=== PATIENT | female | born 1960 | race Hispanic/Latino ===

== ENCOUNTER 2018-05-10 21:27 | Emergency (ER) | payer BC ==
[~2018-05-10] VITALS: Ht 162.6 cm; Wt 61.7 kg
[~2018-05-10 21:27] MED LIST: GABAPENTIN300 MG PO; HYDROCHLOROTH12.5 M1 PO; IMITREX50 MG PO; LEXAPRO20 MG PO; LISINOPRIL2.5 MG PO; LOSARTAN POTAS100 MG PO; MEDROL4 MG/DOSE-; METOPROLOL SUCC25 MG PO; MOTRIN200 MG PO; NITROGLYCERIN0.4 MG SL; NITROSTAT0.4 MG; PAROXETINE HCL20 MG PO; PREDNISONE10 M1; PROPRANOLOL HCL10 MG PO; SOMA350 MG PO; TOPAMAX100 MG PO; lortab PO
[2018-05-10] MEDS ORDERED: CLONIDINE HCL 0.2 MG TAB PO ONE (22:00)
[2018-05-10 22:32] VITALS: BP 189/98
== END 2018-05-10 22:34 | disposition home or self-care (01) ==
LOC: FSED 21:27
DX: H60.92 Unspecified otitis externa, left ear (principal); I10 Essential (primary) hypertension
CPT/HCPCS: 99283

== ENCOUNTER 2019-11-12 16:51 | Emergency (ER) | payer BC ==
[~2019-11-12] VITALS: Ht 170.2 cm; Wt 65.8 kg
[2019-11-12] MEDS ORDERED: HYDRALAZINE HCL 20 MG/ML VIAL IV STA (17:31)
--- NOTE | 2019-11-12 17:37 | Emergency Department Note ---
History of Present Illnes History of Present Illness Chief Complaint: Hypertension History of Present Illness This is a 59 year old female presents to the ED for elevated SBP for 213 mmHg starting today. Reports R sided PAZ with R retrorbital pain with blurriness of both eyes. Historian: Patient Arrival Mode: Car Past Medical/Family History Physician Review I have reviewed the patient's past medical and family history. Any updates have been documented here. Past Medical History Recent Fever: No Clinical Suspicion of Infectio: No New/Unexplained Change in Ment: No Past Medical History: Hypertension Other Medical History: CIDP (GUILLAIN-BARRE) Past Surgical History: Appendectomy Other Surgery: C SEC X2 CERVICAL SURGERY RIGHT ARM Social History Smoking Cessation: Never Smoker Alcohol Use: None Any Illegal Drug Use: No Other Last Tetanus: OOD Review of Systems Review of Systems Constitutional: Reports no symptoms EENTM: Reports no symptoms Cardiovascular: Reports no symptoms Respiratory: Reports no symptoms Gastrointestinal: Reports no symptoms Genitourinary: Reports no symptoms Musculoskeletal: Reports no symptoms Integumentary: Reports no symptoms Neurological: Reports headache Psychological: Reports no symptoms Endocrine: Reports no symptoms Hematological/Lymphatic: Reports no symptoms Physical Exam Related Data Allergies: Coded Allergies: morphine (Verified Allergy, Mild, 03/13/13) propoxyphene (Verified Allergy, Mild, 03/13/13) butorphanol (Verified Allergy, Unknown, 04/20/16) ciprofloxacin (Verified Allergy, Unknown, 04/20/16) ciprofloxacin HCl (Verified Allergy, Unknown, 04/20/16) ondansetron (Verified Allergy, Unknown, 11/10/13) sumatriptan (Verified Allergy, Unknown, 04/20/16) sumatriptan succinate (Verified Allergy, Unknown, 04/20/16) hydromorphone HCl (Verified Adverse Reaction, Intermediate, Itching, 03/14/13) Patient is complaining of "itching all over." Also noted red areas on skin Triage Vital Signs Vital Signs Date Time Temp Pulse Resp B/P (MAP) Pulse Ox O2 Delivery O2 Flow Rate FiO2 11/12/19 17:24 98.1 82 16 192/108 100 Vital signs reviewed: Yes Physical Exam CONSTITUTIONAL Constitutional: Present well-developed, Present well-nourished HENT HENT: Present normocephalic, Present atraumatic, Present oropharynx clear/moist, Present nose normal HENT L/R: Present left ext ear normal, Present right ext ear normal EYES Eyes: Reports PERRL, Reports conjunctivae normal NECK Neck: Present ROM normal PULMONARY Pulmonary: Present effort normal, Present breath sounds normal CARDIOVASCULAR Cardiovascular: Present regular rhythm, Present heart sounds normal, Present capillary refill normal, Present normal rate GASTROINTESTINAL Abdominal: Present soft, Present nontender, Present bowel sounds normal GENITOURINARY Genitourinary: Present exam deferred SKIN Skin: Present warm, Present dry MUSCULOSKELETAL Musculoskeletal: Present ROM normal NEUROLOGICAL Neurological: Present alert, Present oriented x 3, Present no gross motor or sensory deficits PSYCHOLOGICAL Psychological: Present mood/affect normal, Present judgement normal Procedures 12 Lead ECG Interpretation ECG Interpretation : ECG: ECG 1 Meat Lugger: Interpreted by ED physician Date: Nov 12, 2019 Time: 18:47 Prior ECG tracings: reviewed Rhythm: sinus rhythm Rate: normal BPM: 71 QRS axis: normal ST segments normal: Yes T waves normal: Yes T waves flattening: all, V1-V6 Clinical Impression: normal ECG Assessment & Plan Assessment & Plan Final Impression: (1) Hypertensive urgency (2) Dizziness Last Vital Signs Date Time Temp Pulse Resp B/P (MAP) Pulse Ox O2 Delivery O2 Flow Rate FiO2 11/12/19 17:24 98.1 82 16 192/108 100 Home Meds Reported Medications Paroxetine Hcl (PAROXETINE HCL) 20 Mg Tablet, 50 MG PO DAILY, #30 TAB 04/22/16 Losartan Potassium (LOSARTAN POTASSIUM) 100 Mg Tablet, 50 MG PO BID, TAB 04/20/16 Propranolol Hcl (PROPRANOLOL HCL) 10 Mg Tablet, 60 MG PO HS, TAB 04/20/16 Nitroglycerin (NITROGLYCERIN) 0.4 Mg Tab.subl, 0.4 MG SL Q5MIN PRN for CHEST PAIN, TAB 10/29/13 Ibuprofen (MOTRIN) 200 Mg Tab, 400 MG PO Q6 PRN for PAIN, TAB 10/29/13 Escitalopram Oxalate (LEXAPRO) 20 Mg Tablet, 20 MG PO DAILY 03/13/13 Gabapentin (GABAPENTIN) 300 Mg Capsule, 300 MG PO TID 03/13/13 MEGHAN RIDLEY DO Nov 12, 2019 17:37
--- OUTSIDE RECORDS SUMMARY | 2019-11-12 17:46 | XMS REPORT | Continuity of Care Document ---
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 Name Role Phone Impedance Cardiology Systems Information [employer] Unavailable Un available Problems Problem Status Onset Date Classification Date Reported Comments Source Hyperthyroidism Active 03/19/2013 [facility] Hypertension Active 03/19/2013 [facility] Anxiety Disorder NOS Active 03/19/2013 [facility] Acute Bronchitis Active 03/19/2013 [facility] Chest Pain Active 03/19/2013 [facility] Numbness (Hypesthesia) Active 03/19/2013 [facility] Tingling (Paresthesia) Active 03/19/2013 [facility] Upper Back Pain (Between Shoulder Blades) Active 03/19/2013 [facility] Medications Medication Details Route Status Patient Instructions Ordering Provider Order Date Source Escitalopram Oxalate 20 MG Oral Tablet ; End Date: 05/17/2013 (Active) Active 05/18/2013 [facility] PredniSONE 10 MG Oral Tablet ; Start Date: 03/07/2013; End Date: (Active) Active 03/07/2013 [facility] Carisoprodol 350 MG Oral Tablet ; Start Date: 03/07/2013 (Active) Active 03/07/2013 [facility] Nitrostat 0.4 MG Sublingual Tablet Sublingual ; Start Date: 03/07/2013; End Date: (Active) Active 03/07/2013 [facility] Metoprolol Succinate ER 25 MG Oral Table t Extended Release 24 Hour ; Start Date: 12/18/2012; End Date: 02/1899 (Active) Active 12/18/2012 [facility] Hydrochlorothiazide 12.5 MG Oral Capsule ; Start Date: 12/18/2012; End Date: (Active) Active 12/18/2012 [facility] Gabapentin 300 MG Oral Capsule (Active) Active [facility] Escitalopram Oxalate 20 MG Oral Tablet (Active) Active [facility] Losartan Potassium 100 MG Oral Tablet (Active) Active [facility] Promethazine HCl 25 MG Oral Tablet (Active) Active [facility] SUMAtriptan Succinate 25 MG Oral Tablet (Active) Active [facility] Ibuprofen 200 MG Oral Capsule (Active) Active [facility] Aleve 220 MG Oral Capsule (Ac tive) Active [facility] Hydrocodone-Acetaminophen TABS (Active) Active [facility] Allergies, Adverse Reactions, Alerts Substance Category Reaction Severity Reaction type Status Date Reported Comments Source Morphine Derivatives drug marvin rgy drug aller gy Active [facility] Darvon CAPS drug allergy drug allergy Active [facility] Cipro TABS drug allergy drug allergy Active [facility] Imitrex TABS drug allergy drug allergy Active [facility] Darvocet-N 50 TABS drug allergy drug allergy Active [facility] Immunizations No Data Provided for This Section Results No Data Provided for This Section Pathology Reports No Data Provided for This Section Diagnostic Reports No Data Provided for This Section Consultation Notes No Data Provided for This Section Discharge Summaries No Data Provided for This Section History and Physicals No Data Provided for This Section Vital Signs No Data Provided for This Section Encounters Location Location Details Encounter Type Encounter Number Reason For Visit Attending Provider ADM Date DC Date Status Source AUDIT [id number] 12/18/2012 12/18/2012 [facility] AUDIT [id number] 03/09/2013 03/09/2013 [facility] CHADDP Provi valerie: HAYDER CRUM, Status: Pen, Time: 9:00 AM [id number] 03/14/19 14 03/09/2013 [facility] AUDIT [id number] 03/14/2013 03/14/2013 [facility] AUDIT [id number] 03/19/2013 03/19/2013 [facility] [id number], Provi valerie: NATALIE BAL, Status: Pen, Time: 3:00 PM [id number] 03/28/19 14 03/19/2013 [facility] Procedures No Data Provided for This Section Assessment and Plan No Data Provided for This Section Plan of Care Plan of Care Date Source XRAY Spine cervical 2 or 3 view [id number] 03/07/2013 [facility] Spine thoracic AP Lat swimmer [id number] 03/07/2013 RoutineMedication Use 03/07/2013 Routine 03/19/2013 [facility] XRAY Spine cervical 2 or 3 view [id number] 03/07/2013 RoutineXRAY Spine thoracic AP Lat swimmer [id number] 03/07/2013 RoutineMedication Use 03/07/2013 RoutineCardiology Referral 03/07/2013 Routine 03/14/2013 [facility] XRAY Spine cervical 2 or 3 view [id number] 03/07/2013 RoutineXRAY Spine thoracic AP Lat swimmer [id number] 03/07/2013 RoutineMedication Use 03/07/2013 RoutineCardiology Referral 03/07/2013 Routine 03/09/2013 [facility] Social History Social History Date Source Marital History - Currently (Active) Never A Smoker (Active) No History of Never Drank Alcohol (Denied) Never Used Drugs (Active) Being A Social Drinker (Active) 03/19/2013 [facility] Family History Value Date S ource Maternal history of Hypertension (V17.49 ); (Active) Maternal history of Diabetes Mellitus (V18.0); (Active) Maternal history of Cancer (Active) Maternal history of Stroke Complications (Active) Maternal uncle's history of Parkinson Disease (Active) 03/19/2013 [facility] Maternal history of Hypertension (V17.49 ); (Active) Maternal history of Diabetes Mellitus (V18.0); (Active) Maternal history of Cancer (Active) Maternal history of Stroke Complications (Active) Maternal uncle's history of Parkinson Disease (Active) 03/14/2013 [facility] Maternal history of Hypertension (V17.49 ); (Active) Maternal history of Diabetes Mellitus (V18.0); (Active) Maternal history of Cancer (Active) Maternal history of Stroke Complications (Active) Maternal uncle's history of Parkinson Disease (Active) 03/09/2013 [facility] Maternal history of Hypertension (V17.49 ); (Active) Maternal history of Diabetes Mellitus (V18.0); (Active) Maternal history of Cancer (Active) Maternal history of Stroke Complications (Active) 12/18/2012 [facility] Advance Directives Order Name Results Value Date Source Advance Directives Advance Dir ectives No Advance Directives available. 03/19/2013 [facility] Advance Directives Advance Dir ectives No Advance Directives available. 03/14/2013 [facility] Advance Directives Advance Dir ectives No Advance Directives available. 03/09/2013 [facility] Advance Directives Advance Dir ectives No Advance Directives available. 12/18/2012 [facility] Functional Status No Data Provided for This Section
[2019-11-12 18:09] LABS: BASOPHILS % 0.7 % (0.0-1.0); EOSINOPHILS # (AUTO) 0.2 (0.0-0.4); EOSINOPHILS % 4.1 % (0.0-6.0); HEMATOCRIT 38.1 % (34.2-44.1); LYMPHOCYTES # (AUTO) 1.3 (1.0-3.2); LYMPHOCYTES % 28.6 % (18.0-39.1); MEAN CORPUSCULAR HGB CONC 34.1 g/dL (31-35); MONOCYTES # (AUTO) 0.4 (0.2-0.8); MONOCYTES % 7.6 % (4.4-11.3); NEUTROPHILS # (AUTO) 2.7 (2.1-6.9); NEUTROPHILS % 58.8 % (38.7-80.0); PLATELET COUNT 235 x10e3/uL (140-360); RED BLOOD COUNT 4.33 x10e6/uL (3.6-5.1); RED CELL DISTRIBUTION WIDTH 12.8 % (11.7-14.4)
[2019-11-12 18:31] LABS: ALANINE AMINOTRANSFERASE 13 IU/L (0-55); ALBUMIN 4.5 g/dL (3.5-5.0); ALBUMIN/GLOBULIN RATIO 1.5 (0.8-2.0); ALKALINE PHOSPHATASE 75 IU/L (40-150); ANION GAP 13.9 mmol/L (8-16); BLOOD UREA NITROGEN 13 mg/dL (7-26); BUN/CREATININE RATIO 18 (6-25); CALCIUM 9.1 mg/dL (8.4-10.2); CARBON DIOXIDE 26 mmol/L (22-29); CHLORIDE 104 mmol/L (98-107); CREATINE KINASE 84 IU/L (29-168); CREATININE, SERUM 0.72 mg/dL (0.57-1.11); EST GLOMERULAR FILTRATION RATE > 60 ML/MIN (60-); GLUCOSE 87 mg/dL (74-118); POTASSIUM 3.9 mmol/L (3.5-5.1); SODIUM 140 mmol/L (136-145)
--- NOTE | 2019-11-12 18:32 | Diagnostic Imaging Report ---
CT BRAIN WO HISTORY: Dizziness COMPARISON: Report from head CT dated 11/10/2013 TECHNIQUE: Noncontrast axial scans were obtained from skull base to the vertex. Coronal and sagittal reconstructions obtained from the axial data. One or more of the following dose reduction techniques were used: Automated exposure control, adjustment of the mA and/or kV according to patient size, and/or utilization of iterative reconstruction technique. DISCUSSION: Scalp/Skull: Unremarkable. Brain sulci: Mildly prominent. Ventricles: Mild compensatory dilatation. Extra-axial spaces: No masses or fluid collections. Minimal carotid siphon calcifications. 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 Otherwise, no mass, hemorrhage, or large vascular territory acute infarct. Dural sinuses: No abnormal densities. Sellar/Suprasellar region: Intact. Skull base: Intact. Incidental findings: None. IMPRESSION: 1. No acute intracranial abnormalities. 2. Mild generalized cerebral volume loss. 3. Incidental subcentimeter pineal cyst. Signed by: Dr. Cameron Boyle M.D. on 11/12/2019 6:29 PM
[2019-11-12 19:11] VITALS: BP 116/75
== END 2019-11-12 19:16 | disposition home or self-care (01) ==
LOC: ER 17:23
DX: I16.0 Hypertensive urgency (principal); R42 Dizziness and giddiness
CPT/HCPCS: 36415; 70450; 80053; 82550; 82553; 84484; 85025; 93005; 99284; J0360

== ENCOUNTER 2021-02-23 13:52 | Outpatient (RCR) | payer BC | END 2021-02-27 | LOC: PT 13:52 | PROVIDERS: ATTEND Radiology Neuroradiology | DX: G61.81 Chronic inflammatory demyelinating polyneuritis (principal) ==

== ENCOUNTER 2021-03-12 10:51 | Outpatient (RCR) | payer BC | END 2021-03-30 | LOC: PT 10:51 | PROVIDERS: ATTEND Radiology Neuroradiology | DX: G61.81 Chronic inflammatory demyelinating polyneuritis (principal) ==

== ENCOUNTER 2023-01-26 00:21 | Emergency (ER) | payer BC ==
[~2023-01-26] VITALS: Ht 170.2 cm; Wt 65.8 kg
[~2023-01-26 00:21] MED LIST changes: +AZITHROMYCIN250 MG PO
[2023-01-26] MEDS ORDERED: SODIUM CHLORIDE 0.9% 1000ML 1,000 ML IV STA (00:30)
[2023-01-26 00:49] LABS: BASOPHILS % 0.4 % (0.0-1.0); EOSINOPHILS # (AUTO) 1.2 (0.0-0.4); EOSINOPHILS % 17.5 % (0.0-6.0); HEMATOCRIT 34.9 % (34.2-44.1); HEMOGLOBIN 11.8 g/dL (12.0-16.0); LYMPHOCYTES # (AUTO) 2.3 (1.0-3.2); LYMPHOCYTES % 33.9 % (18.0-39.1); MEAN CORPUSCULAR HEMOGLOBIN 29.3 pg (28-32); MEAN CORPUSCULAR HGB CONC 33.8 g/dL (31-35); MEAN CORPUSCULAR VOLUME 86.6 fL (81-99); MONOCYTES # (AUTO) 0.5 (0.2-0.8); MONOCYTES % 7.8 % (4.4-11.3); NEUTROPHILS # (AUTO) 2.7 (2.1-6.9); PLATELET COUNT 255 x10e3/uL (140-360); RED BLOOD COUNT 4.03 x10e6/uL (3.6-5.1); RED CELL DISTRIBUTION WIDTH 13.1 % (11.7-14.4); WHITE BLOOD COUNT 6.81 x10e3/uL (4.8-10.8)
[2023-01-26 01:09] LABS: ALANINE AMINOTRANSFERASE 13 IU/L (0-55); ALBUMIN 3.8 g/dL (3.5-5.0); ALBUMIN/GLOBULIN RATIO 1.1 (0.8-2.0); ALKALINE PHOSPHATASE 57 IU/L (40-150); ANION GAP 15.9 mmol/L (8-16); BILIRUBIN,TOTAL 0.3 mg/dL (0.2-1.2); BLOOD UREA NITROGEN 19 mg/dL (7-26); BUN/CREATININE RATIO 22 (6-25); CALCIUM 8.8 mg/dL (8.4-10.2); CARBON DIOXIDE 23 mmol/L (22-29); CHLORIDE 103 mmol/L (98-107); CREATINE KINASE 42 IU/L (29-168); CREATININE, SERUM 0.86 mg/dL (0.57-1.11); EST GLOMERULAR FILTRATION RATE 77 ML/MIN (>=60); GLUCOSE 88 mg/dL (74-118); POTASSIUM 3.9 mmol/L (3.5-5.1); SODIUM 138 mmol/L (136-145); TOTAL PROTEIN 7.4 g/dL (6.5-8.1)
[2023-01-26 01:18] LABS: TROPONIN I < 0.001 ng/mL (0-0.300)
[2023-01-26] MEDS ORDERED: METHYLPREDNISOLONE SOD SUCC 125 MG/2ML VIAL IV STA (01:19)
[2023-01-26] MEDS ORDERED: METOCLOPRAMIDE HCL 10 MG/2ML VIAL IV STA (01:19)
[2023-01-26] MEDS ORDERED: DIPHENHYDRAMINE HCL INJ 50 MG/ML VIAL IV STA (01:19)
[2023-01-26] MEDS ORDERED: KETOROLAC TROMETHAMINE 30 MG/ML VIAL IV STA (01:19)
[2023-01-26] MEDS ORDERED: HYDRALAZINE HCL 20 MG/ML VIAL IV STA (02:07)
[2023-01-26 03:15] VITALS: BP 161/80; PULSE 77; RESP 14; O2SAT 99
== END 2023-01-26 03:00 | disposition home or self-care (01) ==
LOC: ER 00:27
DX: R51.9 Headache, unspecified (principal); I16.0 Hypertensive urgency; I10 Essential (primary) hypertension; F41.9 Anxiety disorder, unspecified; Z20.822 Contact with and (suspected) exposure to COVID-19
CPT/HCPCS: 36415; 70450; 71045; 80053; 82550; 83880; 84484; 85025; 93005; 99284; J0360; J1200; J1885; J2765; J2930; J7030; U0002